=== PATIENT | female | born 1940 | race Caucasian/White ===

== ENCOUNTER 2019-07-18 13:13 | Emergency (ER) | payer MEDICARE, BC ==
[~2019-07-18] VITALS: Ht 154.9 cm; Wt 69.1 kg
[~2019-07-18 13:13] MED LIST: BENICAR HCT 12.1 TAB PO; FERREX 150150 MG PO; FOLIC ACID 40400 MCG PO; MULTI VITAMINS1 TAB PO; ULTRAM 50MG TAB50 MG PO; VIIBRYD20 MG PO; VITA-BEE WITH C1 TAB PO; VITAMIN C PURE500 MG PO; VITAMIN D1000 IU PO
[2019-07-18 13:16] VITALS: BP 137/85; TEMP 98
[2019-07-18] MEDS ORDERED: GLUCOSAMIN 500 PO (13:34)
[2019-07-18] MEDS ORDERED: OMEGA-3 1000 MG1 CAP PO (13:35)
[2019-07-18 14:38] VITALS: PULSE 74
== END 2019-07-18 14:45 | disposition home or self-care (01) ==
LOC: COL.ER 13:13
DX: G43.909 Migraine, unspecified, not intractable, without status migrainosus (principal); Z88.0 Allergy status to penicillin; Z88.5 Allergy status to narcotic agent; Z98.890 Other specified postprocedural states; Z90.710 Acquired absence of both cervix and uterus
CPT/HCPCS: J1885